=== PATIENT | male | born 1985 | race Caucasian/White ===

== ENCOUNTER 2017-09-18 02:51 | Emergency (ER) | payer OTHER ==
[~2017-09-18] VITALS: Ht 180.3 cm; Wt 85.2 kg
[~2017-09-18 02:51] MED LIST: ALPR-385 PO; AMPH30TA2 PO
[2017-09-18 02:56] VITALS: TEMP 36.6; O2SAT 91; Ht 180.3 cm; Wt 85.2 kg
--- NOTE | 2017-09-18 04:30 | EMERGENCY ROOM VISIT NOTE ---
History First contact with patient: 02:59 Chief Complaint: OVERDOSE (ACCIDENTAL) Nursing Triage Summary: Patient was a visitor in the Labor and Delivery department when he had a syncopal episode and stopped breathing. Code team was called to resuscitate patient. Patient was unresponsive on the toilet and staff assisted patient to floor. Respiratory was assisting patients breathing with an ambubag. Patient was being moved to backboard to transfer to ED and patient woke up disoriented. Patient was assisted onto backboard and taken to ED. Patient requesting to leave AMA. Dr. Dawkins made aware. History of Present Illness The patient is a 32 year old male who was found on the maternity floor in labor and delivery unresponsive. I was called to the scene from the emergency department with an emergency nurse. Upon arrival an IV had been established and the patient was being bagged by respiratory therapy. I placed the patient on a long backboard and at that point the patient awoke. He was then transferred to a bed and we'll down to the emergency department. The patient states that he took a Xanax this evening however there are multiple small baggies filled with a substance around the patient. He denies any medical history. The patient is requesting to leave the emergency department. Review of Systems See HPI for pertinent positives & negatives. A total of 10 systems reviewed and were otherwise negative. Past Medical/Surgical History Medical Problems: (1) Cellulitis (2) Cellulitis (3) Cellulitis and abscess of digit (4) Finger infection (5) Lumbar contusion (6) Scabies (7) Scabies Surgical Problems: (1) History of orthopedic surgery Family History FH: HTN (hypertension) FH: cancer FH: diabetes mellitus FH: heart disease FH: kidney disease FH: lung disease FH: seizures FHx: gallbladder disease Social History Smoking Status: Current Every Day Smoker Alcohol Use: none Drug Use: heroin, marijuana Marital Status: Housing Status: lives with family Occupation Status: employed Current/Historical Medications Scheduled Alprazolam (Xanax), 1 MG PO BID Amphetamine-Dextroamphetamine 30MG (Adderall 30MG), 30 MG PO BID Physical Exam Vital Signs Date Time Temp Pulse Resp B/P (MAP) Pulse Ox O2 Delivery O2 Flow Rate FiO2 09/18/17 02:56 36.6 128 16 160/92 90 Room Air 09/18/17 02:56 91 Room Air 10/27/17 02:56 128 Physical Exam GENERAL: Patient is a healthy-appearing well-nourished male HEAD: Normocephalic atraumatic EYES: Ocular movements intact pupils pinpoint OROPHARYNX mucous membranes are moist no exudates present no erythema or edema present NECK: Supple no nuchal rigidity CHEST: Good equal expansion LUNGS: Clear and equal to auscultation CARDIAC: Normal S1 and S2 ABDOMEN: Soft nontender no guarding BACK: No CVA tenderness EXTREMITIES: No pain upon palpation normal muscle strength in all groups no clubbing cyanosis or edema NEURO: Patient is following commands is answering questions appropriately. Alert and oriented x3 Cranial Nerves 2-12 grossly intact Medical Decision & Procedures Medical Decision Upon arrival to the emergency department the patient is adamantly refusing wishes to sign out AGAINST MEDICAL ADVICE. He is refusing all care. Due to the nature of the incident as well as multiple drugs found on the patient he was turned over to [place] police department. Impression Primary Impression: Drug overdose Departure Information Dispostion Against Medical Advice Condition OTHER Forms WORK / SCHOOL INSTRUCTIONS, HOME CARE DOCUMENTATION FORM, IMPORTANT VISIT INFORMATION Patient Instructions [facility] Health Problem Qualifiers Primary Impression: Drug overdose Encounter type: initial encounter Injury intent: undetermined intent Qualified Codes: T50.904A - Poisoning by unspecified drugs, medicaments and biological substances, undetermined, initial encounter
[2017-09-18 05:35] VITALS: BP 147/97; PULSE 113; O2SAT 99
== END 2017-09-18 05:32 | disposition left against medical advice (07) ==
LOC: EDBD 02:51 → C.EDA 02:52
DX: T50.991A Poisoning by other drugs, medicaments and biological substances, accidental (unintentional), initial encounter (principal); X58.XXXA Exposure to other specified factors, initial encounter; F17.200 Nicotine dependence, unspecified, uncomplicated; Z86.19 Personal history of other infectious and parasitic diseases; Z98.890 Other specified postprocedural states; Z79.899 Other long term (current) drug therapy; Z80.9 Family history of malignant neoplasm, unspecified; Z82.49 Family history of ischemic heart disease and other diseases of the circulatory system; Z83.3 Family history of diabetes mellitus; Z84.1 Family history of disorders of kidney and ureter; Z82.0 Family history of epilepsy and other diseases of the nervous system; Z83.79 Family history of other diseases of the digestive system